=== PATIENT | female | born 1975 | race Caucasian/White ===

== ENCOUNTER 2023-07-30 22:48 | Inpatient (IN) | payer OTHER ==
[~2023-07-30] VITALS: Ht 167.6 cm; Wt 98.4 kg
[~2023-07-30 22:48] MED LIST: ARIP15TA27 PO; ARIP400S3 IM; LEVO150 PO; SENN8.6T90 PO
[2023-07-31] MEDS ORDERED: LORazepam 2 MG TABLET PO PRN (01:00)
[2023-07-31] MEDS ORDERED: ZOLPIDEM TARTRATE 10 MG TABLET PO PRN (01:00)
[2023-07-31] MEDS ORDERED: HALOPERIDOL 5 MG TABLET PO PRN (01:00)
[2023-07-31 01:07] LABS: COVID AG,FIA SOURCE NASAL SWAB
[2023-07-31 01:36] LABS: SARS-COV2 (COVID) ANTIGEN,FIA Negative (Negative)
[2023-07-31 01:59] LABS: BASOPHILS % (AUTO) 0.5 % (0.0-2.0); EOSINOPHILS % (AUTO) 0.4 % (1.0-6.0); HEMATOCRIT 37.6 % (36-46); LYMPHOCYTES # (AUTO) 1.3 K/uL (1.0-4.8); LYMPHOCYTES % (AUTO) 17.9 % (22.0-44.0); MEAN CORPUSCULAR HEMOGLOBIN 32.4 pg (26.0-34.0); MEAN CORPUSCULAR HGB CONC 34.5 G/dL (31.0-37.0); MEAN CORPUSCULAR VOLUME 94 fL (80-100); MONOCYTES # (AUTO) 0.6 K/uL (0.1-1.0); MONOCYTES % (AUTO) 7.3 % (2.0-9.0); NEUTROPHILS # (AUTO) 5.6 K/uL (1.8-7.7); NEUTROPHILS % (AUTO) 73.9 % (40.0-70.0); PLATELET COUNT (AUTO) 431 K/uL (150-450); RED CELL DISTRIBUTION WIDTH 14.5 % (11.5-14.5); WHITE BLOOD COUNT (AUTO) 7.5 K/uL (4.5-11.0)
[2023-07-31 02:07] LABS: ANION GAP 8 mmol/L (8-16); CALCIUM, TOTAL 8.7 mg/dL (8.8-10.5); CARBON DIOXIDE 27 mmol/L (22-29); CHLORIDE 100 mmol/L (98-107); GLOMERULAR FILTR. RATE CALC > 60 mL/min (>60); GLUCOSE,RANDOM 111 mg/dL (70-110); POTASSIUM 3.6 mmol/L (3.5-5.1); SODIUM SERUM 135 mmol/L (136-145); UREA NITROGEN, BLOOD 8 mg/dL (7-18)
[2023-07-31 02:13] LABS: ALANINE AMINOTRANSFERASE 32 U/L (12-78); ALBUMIN 3.5 g/dL (3.4-5.0); ALKALINE PHOSPHATASE 60 U/L (46-116); ASPARTATE AMINOTRANSFERASE 27 U/L (15-37); BILIRUBIN,TOTAL 0.4 mg/dL (0.1-1.0)
[2023-07-31 02:25] LABS: ALCOHOL, BLOOD (SERUM) < 3 mg/dL (0-10)
[2023-07-31 10:50] VITALS: BP 112/70; PULSE 87; RESP 18; TEMP 97.3; O2SAT 98
[2023-07-31] MEDS ORDERED: INFLUENZA VIRUS VACCINE QVS 2023-24 (6MO+)/PF 60 MCG/0.5 ML SYRINGE IM. ONE (13:30)
[2023-07-31] MEDS: ARIPiprazole 15 MG TABLET PO SCH (20:55)
[2023-07-31 22:22] VITALS: BP 122/60; PULSE 76; RESP 18; TEMP 98.2; O2SAT 98
[2023-08-01] MEDS ORDERED: DOCUSATE SODIUM 100 MG CAPSULE PO PRN (05:00)
[2023-08-01] MEDS ORDERED: PETROLATUM,WHITE 28 GM JELLY TP PRN (05:00)
[2023-08-01] MEDS ORDERED: CloNIDine HCL 0.1 MG TABLET PO PRN (05:00)
[2023-08-01] MEDS ORDERED: OMEPRAZOLE 20 MG CAPSULE PO PRN (05:00)
[2023-08-01] MEDS ORDERED: BACITRACIN 28 GM OINTMENT TP PRN (05:00)
[2023-08-01] MEDS ORDERED: IBUPROFEN 600 MG TABLET PO PRN (05:00)
[2023-08-01] MEDS ORDERED: LOPERAMIDE HCL 2 MG CAPSULE PO PRN (05:00)
[2023-08-01] MEDS ORDERED: ALBUTEROL SULFATE HFA 90 MCG/PUFF 8 GM INHALER IH PRN (05:00)
[2023-08-01] MEDS ORDERED: MAG HYDROX/ALUMINUM HYD/SIMETH ES 30 ML SUSPENSION UDCUP PO PRN (05:00)
[2023-08-01] MEDS ORDERED: BENZOCAINE/MENTHOL LOZENGE PO PRN (05:00)
[2023-08-01] MEDS ORDERED: ACETAMINOPHEN 325 MG TABLET PO PRN (05:00)
[2023-08-01] MEDS ORDERED: MAGNESIUM HYDROXIDE SUSPENSION 30 ML UDCUP PO PRN (05:00)
[2023-08-01] MEDS ORDERED: ONDANSETRON HCL 4 MG TABLET PO PRN (05:00)
[2023-08-01] MEDS: LEVOTHYROXINE SODIUM 150 MCG TABLET PO SCH (06:34)
[2023-08-01 09:25] VITALS: BP 124/84; PULSE 86; RESP 18; TEMP 98.9; O2SAT 97
[2023-08-01] MEDS ORDERED: ARIPiprazole ER SUSPENSION 400 MG PRE-FILLED DUAL CHAMBER SYRINGE IM ONE (18:15)
[2023-08-01] MEDS: ARIPiprazole 15 MG TABLET PO SCH (20:05)
[2023-08-01 20:31] VITALS: BP 123/73; PULSE 77; RESP 18; TEMP 97.3; O2SAT 97
[2023-08-02] MEDS: LEVOTHYROXINE SODIUM 150 MCG TABLET PO SCH (05:41)
[2023-08-02 08:45] VITALS: BP 112/58; PULSE 65; RESP 18; TEMP 97.1; O2SAT 96
[2023-08-02] MEDS ORDERED: LEVO125T95 PO (12:42)
== END 2023-08-02 13:15 | disposition home or self-care (01) | DRG 885 ==
LOC: EMS 22:50 → B3A 07-31 07:16
PROVIDERS: ADMIT Psychiatry & Neurology Psychiatry; ATTEND Psychiatry & Neurology Psychiatry
DX: F20.9 Schizophrenia, unspecified (principal); E66.9 Obesity, unspecified; K59.00 Constipation, unspecified; E03.9 Hypothyroidism, unspecified; F41.9 Anxiety disorder, unspecified; Z20.822 Contact with and (suspected) exposure to COVID-19; G47.00 Insomnia, unspecified; I10 Essential (primary) hypertension; F17.210 Nicotine dependence, cigarettes, uncomplicated; Z68.35 Body mass index [BMI] 35.0-35.9, adult
CPT/HCPCS: 80053; 84703; 85025; 99285; G0480; J0401

== ENCOUNTER → 2024-06-18 | Emergency (ER) | payer OTHER ==
[2023-08-02 08:45] VITALS: RESP 18
[~2024-06-18] MED LIST changes: -ARIP15TA27 PO; +LEVO125T95 PO; -LEVO150 PO; -SENN8.6T90 PO
[2024-06-18 16:11] VITALS: BP 103/56; PULSE 68; O2SAT 99
== END | disposition still patient (30) ==
LOC: EMS 16:08
DX: Z53.21 Procedure and treatment not carried out due to patient leaving prior to being seen by health care provider (principal)